=== PATIENT | male | born 1965 | race Caucasian/White ===

== ENCOUNTER → 2018-09-23 | Outpatient (CLI) | payer OTHER ==
[~2018-09-23] MED LIST: ASPI325EC PO; DOCU100 PO; Flexeril 10 mg10 MG PO; Percocet 5-3251 EACH PO
[2018-09-23 12:41] LABS: BASOPHILS ABSOLUTE AUTO 0.04 K/mm3 (0.00-0.23); BASOPHILS PERCENT AUTO 0 % (0-2); EOSINOPHILS ABSOLUTE AUTO 0.02 K/mm3 (0.00-0.68); EOSINOPHILS PERCENT AUTO 0 % (0-6); Hematocrit 44.3 % (37.0-53.0); Hemoglobin 14.5 g/dL (13.5-17.5); IMMATURE GRAN ABSOLUTE AUTO 0.09 K/mm3 (0.00-0.10); IMMATURE GRAN PERCENT AUTO 1 % (0-1); LYMPHOCYTES ABSOLUTE AUTO 1.08 K/mm3 (0.84-5.20); LYMPHOCYTES PERCENT AUTO 8 % (21-46); MONOCYTES ABSOLUTE AUTO 0.92 K/mm3 (0.16-1.47); MONOCYTES PERCENT AUTO 7 % (4-13); Mean Corpuscular HGB 30.3 pg (26.0-34.0); Mean Corpuscular HGB Conc 32.7 g/dL (31.5-36.5); Mean Corpuscular Volume 93 fL (80-100); NEUTROPHILS ABSOLUTE AUTO 11.77 K/mm3 (1.96-9.15); NEUTROPHILS PERCENT AUTO 85 % (41-73); Platelet Count 417 K/mm3 (150-400); RDW Coefficient Variation 13.1 % (11.7-14.2); RDW Standard Deviation 44.7 fL (35.1-46.3); Red Blood Cell Count 4.78 M/mm3 (4.30-5.90); White Blood Cell Count 13.92 K/mm3 (4.00-11.30)
[2018-09-23 12:49] LABS: Alanine Aminotransfer (ALT/SGP 28 U/L (12-78); Albumin, Blood 3.6 g/dL (3.4-5.0); Albumin/Globulin Ratio 0.8 (0.8-1.8); Alk Phos 83 U/L (50-136); Anion Gap 7 mmol/L (6-16); Aspartate Aminotrans (AST/SGOT 25 U/L (12-37); Bilirubin, Total 0.5 mg/dL (0.1-1.0); Blood Urea Nitrogen 18 mg/dL (8-24); Bun/Creatinine Ratio 18.3 (12.0-20.0); CO2, Blood 27 mmol/L (21-32); Calcium, Blood 8.6 mg/dL (8.5-10.1); Chloride, Blood 103 mmol/L (98-108); Creatinine, Blood 0.99 mg/dL (0.60-1.20); Globulin, Blood 4.5 g/dL (2.2-4.0); Glomerular Filtration Rate >60 (60-); Glucose, Blood 92 mg/dL (70-99); Potassium, Blood 3.6 mmol/L (3.5-5.5); Sodium, Blood 137 mmol/L (136-145); Total Protein, Blood 8.1 g/dL (6.4-8.2)
== END | disposition home or self-care (01) ==
LOC: LAB SHORT 11:41 → LAB 11:41
PROVIDERS: Nurse Practitioner
DX: L03.116 Cellulitis of left lower limb (principal)
CPT/HCPCS: 80053; 85025; 87070; 87075; 87077; 87147; 87186; 87205

== ENCOUNTER → 2018-11-28 | Outpatient (CLI) | payer OTHER | END | disposition home or self-care (01) | LOC: LAB SHORT 10:50 → LAB 10:50 | DX: A49.9 Bacterial infection, unspecified (principal); Z87.81 Personal history of (healed) traumatic fracture | CPT/HCPCS: 87070; 87075; 87077; 87147; 87186; 87205 ==

== ENCOUNTER 2018-12-19 00:07 | Day surgery (SDC) | payer OTHER | END 2018-12-19 23:54 | disposition home or self-care (01) | LOC: WOUND 00:07 | DX: L03.116 Cellulitis of left lower limb (principal); I96 Gangrene, not elsewhere classified; L97.821 Non-pressure chronic ulcer of other part of left lower leg limited to breakdown of skin; F17.210 Nicotine dependence, cigarettes, uncomplicated; B19.20 Unspecified viral hepatitis C without hepatic coma; F90.9 Attention-deficit hyperactivity disorder, unspecified type; Z86.14 Personal history of Methicillin resistant Staphylococcus aureus infection; Z91.041 Radiographic dye allergy status; Z79.82 Long term (current) use of aspirin; Z79.899 Other long term (current) drug therapy | CPT/HCPCS: 36415; 73590; 85025; 85651; 86140; 87070; 87075; 87077; 87147; 87186; 87205; G0463 ==

== ENCOUNTER 2018-12-25 09:45 | Day surgery (SDC) | payer OTHER | END 2018-12-25 22:38 | disposition home or self-care (01) | LOC: WOUND 09:45 | DX: L97.922 Non-pressure chronic ulcer of unspecified part of left lower leg with fat layer exposed (principal); F17.210 Nicotine dependence, cigarettes, uncomplicated; Z86.14 Personal history of Methicillin resistant Staphylococcus aureus infection ==

== ENCOUNTER 2019-01-06 08:35 | Day surgery (SDC) | payer OTHER | END 2019-01-06 22:40 | disposition home or self-care (01) | LOC: WOUND 08:35 | DX: L08.9 Local infection of the skin and subcutaneous tissue, unspecified (principal); I96 Gangrene, not elsewhere classified; L97.822 Non-pressure chronic ulcer of other part of left lower leg with fat layer exposed; F17.210 Nicotine dependence, cigarettes, uncomplicated; B15.9 Hepatitis A without hepatic coma; B19.20 Unspecified viral hepatitis C without hepatic coma; Z86.14 Personal history of Methicillin resistant Staphylococcus aureus infection; Z91.041 Radiographic dye allergy status; Z79.82 Long term (current) use of aspirin; Z79.899 Other long term (current) drug therapy | CPT/HCPCS: G0463 ==

== ENCOUNTER 2019-01-13 09:43 | Day surgery (SDC) | payer OTHER | END 2019-01-13 22:52 | disposition home or self-care (01) | LOC: WOUND 09:43 | DX: S81.802D Unspecified open wound, left lower leg, subsequent encounter (principal); Z86.14 Personal history of Methicillin resistant Staphylococcus aureus infection ==

== ENCOUNTER → 2019-04-22 | Outpatient (CLI) | payer OTHER | END | disposition home or self-care (01) | LOC: LAB SHORT 19:31 → LAB 19:31 | DX: A49.9 Bacterial infection, unspecified (principal) | CPT/HCPCS: 87070; 87075; 87077; 87147; 87186; 87205 ==

== ENCOUNTER 2019-06-05 10:47 | Day surgery (SDC) | payer OTHER ==
[~2019-06-05] VITALS: Ht 177.8 cm; Wt 58.0 kg
[2019-06-05] MEDS ORDERED: Doxycycline Mo100 M1 PO (12:02)
[2019-06-05] MEDS ORDERED: [UNRECOGNIZED DRUG - OTHER] (12:02)
== END 2019-06-05 17:20 | disposition home or self-care (01) ==
LOC: ORSCMMR 10:47 → ORD 11:00 → ORSCMMR 12:15 → ORD 12:30 → ORSCMMR 17:20
PROVIDERS: Orthopaedic Surgery
PROC: 0QPH04Z Removal of Internal Fixation Device from Left Tibia, Open Approach (ICD-10-PCS; principal; 2019-06-05 12:30)
DX: S81.802A Unspecified open wound, left lower leg, initial encounter (principal); T84.623A Infection and inflammatory reaction due to internal fixation device of left tibia, initial encounter; A49.02 Methicillin resistant Staphylococcus aureus infection, unspecified site; F17.210 Nicotine dependence, cigarettes, uncomplicated
CPT/HCPCS: 73590; 87071; 87075; 87077; 87147; 87186; 87205; A9270-GY; J0690; J1100; J1885; J2250; J2370; J2405; J2704; J3010; J3370; J7120

== ENCOUNTER 2019-11-17 22:38 | Inpatient (IN) | payer OTHER ==
[~2019-11-17] VITALS: Ht 177.8 cm; Wt 59.5 kg
[~2019-11-17 22:38] MED LIST changes: +Doxycycline Mo100 M1 PO; +[UNRECOGNIZED DRUG - OTHER]
[2019-11-17 23:36] LABS: BASOPHILS ABSOLUTE AUTO 0.08 K/mm3 (0.00-0.23); BASOPHILS PERCENT AUTO 1 % (0-2); EOSINOPHILS ABSOLUTE AUTO 0.11 K/mm3 (0.00-0.68); EOSINOPHILS PERCENT AUTO 1 % (0-6); Hematocrit 43.1 % (37.0-53.0); Hemoglobin 13.8 g/dL (13.5-17.5); IMMATURE GRAN ABSOLUTE AUTO 0.04 K/mm3 (0.00-0.10); IMMATURE GRAN PERCENT AUTO 0 % (0-1); LYMPHOCYTES ABSOLUTE AUTO 1.53 K/mm3 (0.84-5.20); LYMPHOCYTES PERCENT AUTO 14 % (21-46); MONOCYTES ABSOLUTE AUTO 1.02 K/mm3 (0.16-1.47); MONOCYTES PERCENT AUTO 9 % (4-13); Mean Corpuscular HGB 28.6 pg (26.0-34.0); Mean Corpuscular Volume 89 fL (80-100); Mean Platelet Volume 8.8 fL (9.1-12.4); NEUTROPHILS ABSOLUTE AUTO 8.36 K/mm3 (1.96-9.15); NEUTROPHILS PERCENT AUTO 75 % (41-73); Platelet Count 865 K/mm3 (150-400); RDW Coefficient Variation 16.1 % (11.7-14.2); RDW Standard Deviation 53.4 fL (35.1-46.3); Red Blood Cell Count 4.82 M/mm3 (4.30-5.90); White Blood Cell Count 11.14 K/mm3 (4.00-11.30)
[2019-11-17 23:54] LABS: Alanine Aminotransfer (ALT/SGP 10 U/L (12-78); Albumin, Blood 2.3 g/dL (3.4-5.0); Albumin/Globulin Ratio 0.4 (0.8-1.8); Alk Phos 164 U/L (50-136); Anion Gap 5 mmol/L (6-16); Aspartate Aminotrans (AST/SGOT 14 U/L (12-37); Bilirubin, Total 0.3 mg/dL (0.1-1.0); Blood Urea Nitrogen 9 mg/dL (8-24); Bun/Creatinine Ratio 10.7 (12.0-20.0); CO2, Blood 30 mmol/L (21-32); Calcium, Blood 8.7 mg/dL (8.5-10.1); Chloride, Blood 99 mmol/L (98-108); Creatinine, Blood 0.84 mg/dL (0.60-1.20); Globulin, Blood 6.1 g/dL (2.2-4.0); Glomerular Filtration Rate >60 (60-); Glucose, Blood 102 mg/dL (70-99); Potassium, Blood 3.6 mmol/L (3.5-5.5); Sodium, Blood 134 mmol/L (136-145); Total Protein, Blood 8.4 g/dL (6.4-8.2); Troponin I <0.015 ng/mL (0.000-0.040)
--- NOTE | 2019-11-18 02:27 | NUR ---
PATIENT ARRIVED VIA GURNEY TO THE FLOOR. BEING ADMITTED FOR PNEUMONIA, SEPSIS, AND HYPOXIA. AOX3, ABLE TO GET UP AND MOVE AROUND JUST SLOW DUE TO CHEST PAIN AND BACK PAIN. PAIN IS R/T COUGHING AND PNEUMONIA. DENIES PAIN MEDS. STATES HE HAS A HX OF HERION USE AND DOES NOT LIKE TO USE ANY MEDS. HE IS TRYING A HEATING PAD INSTEAD. HAS TO SIT UP IN RECLEINER DUE TO PAIN AND SOB. HAS BEEN UNABLE TO LAY FLAT. LUNG SOUNDS DIMINISHED T/O. RESP EVEN AND UNLABORED. SATS GOOD ON RA. COUGH IS PRODUCTIVE WITH BROWNISH GREEN SPUTUM, SMALL AMOUNTS. CUP GIVEN FOR SPUTUM COLLECTION. IV FLUIDS STARTED, AND AZITHROMYCIN STARTED. BLE EDEMA +2 ELEVATED IN RECLEINER. WILL CONTINUE TO MONITOR, CALL LIGHT IN REACH.
--- NOTE | 2019-11-18 06:10 | NUR ---
SHIFT SUMMARY: AOX3, ADMITTED FOR PNEUMONIA, SEPSIS. LUNG SOUNDS DIMINISHED THROUGHOUT. PRODUCTIVE COUGH WITH BROWNISH GREEN SPUTUM, HAS SPUTUM CUP FOR SAMPLE. REPORTS PLEURAL PAIN IN CHEST WALL. PULLED IV FENTANYL BUT THEN HE DECIDED TO HOLD OFF TILL HE HAD ATE. AFTEWARDS FELL ASLEEP. WASTED MEDICATION. IV FLUIDS INFUSED WITH NO PROBLEMS. HE SLEPT IN RECLEINER DUE TO BACK PAIN. EDEMA IN BLE 1+, ELEVATED IN RECLEINER. NO OTHER CHANGES TO REPORT. CALL LIGHT IN REACH.
[2019-11-18 11:44] LABS: BASOPHILS ABSOLUTE AUTO 0.11 K/mm3 (0.00-0.23); BASOPHILS PERCENT AUTO 1 % (0-2); EOSINOPHILS ABSOLUTE AUTO 0.07 K/mm3 (0.00-0.68); EOSINOPHILS PERCENT AUTO 1 % (0-6); Hematocrit 43.2 % (37.0-53.0); Hemoglobin 13.9 g/dL (13.5-17.5); IMMATURE GRAN ABSOLUTE AUTO 0.02 K/mm3 (0.00-0.10); IMMATURE GRAN PERCENT AUTO 0 % (0-1); LYMPHOCYTES ABSOLUTE AUTO 1.75 K/mm3 (0.84-5.20); LYMPHOCYTES PERCENT AUTO 14 % (21-46); MONOCYTES ABSOLUTE AUTO 1.01 K/mm3 (0.16-1.47); MONOCYTES PERCENT AUTO 8 % (4-13); Mean Corpuscular HGB 29.2 pg (26.0-34.0); Mean Corpuscular HGB Conc 32.2 g/dL (31.5-36.5); Mean Corpuscular Volume 91 fL (80-100); Mean Platelet Volume 8.8 fL (9.1-12.4); NEUTROPHILS ABSOLUTE AUTO 9.16 K/mm3 (1.96-9.15); NEUTROPHILS PERCENT AUTO 76 % (41-73); Platelet Count 765 K/mm3 (150-400); RDW Coefficient Variation 16.1 % (11.7-14.2); RDW Standard Deviation 54.3 fL (35.1-46.3); Red Blood Cell Count 4.76 M/mm3 (4.30-5.90); White Blood Cell Count 12.12 K/mm3 (4.00-11.30)
--- NOTE | 2019-11-18 11:48 | NUR ---
Echocardiogram completed.
[2019-11-18 12:02] LABS: Alanine Aminotransfer (ALT/SGP 9 U/L (12-78); Albumin/Globulin Ratio 0.4 (0.8-1.8); Alk Phos 161 U/L (50-136); Anion Gap 5 mmol/L (6-16); Aspartate Aminotrans (AST/SGOT 13 U/L (12-37); Bilirubin, Total 0.4 mg/dL (0.1-1.0); Blood Urea Nitrogen 10 mg/dL (8-24); Bun/Creatinine Ratio 11.9 (12.0-20.0); CO2, Blood 30 mmol/L (21-32); Calcium, Blood 8.5 mg/dL (8.5-10.1); Chloride, Blood 100 mmol/L (98-108); Creatinine, Blood 0.84 mg/dL (0.60-1.20); Globulin, Blood 5.7 g/dL (2.2-4.0); Glomerular Filtration Rate >60 (60-); Glucose, Blood 79 mg/dL (70-99); Potassium, Blood 3.6 mmol/L (3.5-5.5); Sodium, Blood 135 mmol/L (136-145); Total Protein, Blood 7.7 g/dL (6.4-8.2)
--- NOTE | 2019-11-18 20:45 | NUR ---
PT REQUESTED MED FOR SLEEP AND BREAKTROUGH PAIN IN ADDITION TO TYLENOL. HE DOESN'T LIKE NARCOTICS AND REFUSES FENTANYL. AGATHA (PAVING PLANT OPERATOR) RX'D IBUPROFEN AND MELATONIN PRN. MEDS RECIEVED ALONG W/ROBITUSSIN FOR COUGH/PLEURITIC PAIN, AWAITING EFFECT.
[2019-11-19 05:13] LABS: BASOPHILS ABSOLUTE AUTO 0.14 K/mm3 (0.00-0.23); BASOPHILS PERCENT AUTO 2 % (0-2); EOSINOPHILS ABSOLUTE AUTO 0.16 K/mm3 (0.00-0.68); EOSINOPHILS PERCENT AUTO 2 % (0-6); Hematocrit 40.5 % (37.0-53.0); IMMATURE GRAN ABSOLUTE AUTO 0.03 K/mm3 (0.00-0.10); IMMATURE GRAN PERCENT AUTO 0 % (0-1); LYMPHOCYTES ABSOLUTE AUTO 2.04 K/mm3 (0.84-5.20); LYMPHOCYTES PERCENT AUTO 23 % (21-46); MONOCYTES ABSOLUTE AUTO 0.94 K/mm3 (0.16-1.47); MONOCYTES PERCENT AUTO 11 % (4-13); Mean Corpuscular HGB 28.8 pg (26.0-34.0); Mean Corpuscular HGB Conc 32.1 g/dL (31.5-36.5); Mean Corpuscular Volume 90 fL (80-100); Mean Platelet Volume 8.7 fL (9.1-12.4); NEUTROPHILS ABSOLUTE AUTO 5.46 K/mm3 (1.96-9.15); NEUTROPHILS PERCENT AUTO 62 % (41-73); Platelet Count 723 K/mm3 (150-400); RDW Coefficient Variation 15.8 % (11.7-14.2); Red Blood Cell Count 4.51 M/mm3 (4.30-5.90); White Blood Cell Count 8.77 K/mm3 (4.00-11.30)
[2019-11-19 05:30] LABS: Anion Gap 5 mmol/L (6-16); Blood Urea Nitrogen 11 mg/dL (8-24); Bun/Creatinine Ratio 13.6 (12.0-20.0); CO2, Blood 26 mmol/L (21-32); Calcium, Blood 8.3 mg/dL (8.5-10.1); Chloride, Blood 105 mmol/L (98-108); Creatinine, Blood 0.81 mg/dL (0.60-1.20); Glomerular Filtration Rate >60 (60-); Glucose, Blood 94 mg/dL (70-99); Sodium, Blood 136 mmol/L (136-145)
--- NOTE | 2019-11-19 05:33 | NUR ---
SUMMARY: A/OX4, CALLS APPROPRIATELY AND INDEPENDENT IN ROOM. PT IS AWARE OF LIMITATIONS AND ALERTS STAFF OF NEEDS PRN. LS CLEAR AND DIM W/FINE CRACKLES TO RLL. ROBITUSSIN WAS RECIEVED PRN FOR COUGH AND PLEURITIC PAIN. SPO2 WNL ON RA AND IV ABX PROVIDED FOR PNM. HE HAD UNRELIEVED BACK PAIN FROM TYLENOL ON DAY SHIFT BUT REFUSES FENTANYL/NARCOTICS. IBUPROFEN RX'D PRN AND WAS RECIEVED FOR SLIGHT IMPROVEMENT. HE'S DENIED NEEDING ANY ADDITIONAL PRN PAIN RELIEF SINCE. MELATONIN WAS ALSO RX'D THIS SHIFT FOR REQUEST FOR SLEEP AID. NO ACUTE CHANGES, VSS/AFEBRILE. HE REMAINS ON TELEMETRY IN S.TACH, HR 100'S. WCTM AND REPORT TO DAY RN.
[2019-11-19 09:03] LABS: International Normalized Ratio 1.1; Prothrombin Time Results 11.7 Sec (9.7-11.5)
--- NOTE | 2019-11-19 17:46 | NUR ---
PATIENT IS ALERT AND ORIENTED AND COOPERATIVE WITH CARE. HEPARIN IV IS RUNNING. PATIENT IS INDEPENDENT IN HIS ROOM. THE PATIENT'S DAUGHTER VISITED HIM TODAY. COMPLAINS OF A COUGH, NO SPUTUM PRODUCTION TODAY. PATIENT STATES THE SWELLING IN HIS LEGS HAS GONE DOWN. PATIENT STATES HE IS QUITTING SMOKING, HE IS REFUSING NICOTINE PATCHES. WILL CONTINUE TO MONITOR.
--- NOTE | 2019-11-20 04:44 | NUR ---
PERSONAL BANKING ADVISOR SUMMARY PT WAS PLEASANT AND COOPERATIVE W CARE BUT DID NOT TOLERATE AN IV INSERTION WELL. PT'S HEPERIN WAS INCREASED AND A BLOUS WAS GIVEN FOLLOWING LAB RESULTS FOR HIS APTT.PT AMBULATED TO THE RESTROOM ONCE AND REPORTED INCREASED LEG PAIN SO TYLENOL WAS GIVEN AND HE REPORTED RELIEF OF PAIN. PT'S O2 SAT'S WERE <89 AROUND 0400 SO HE WAS PLACED ON 2L NC AND REMAINED STABLE >92. PT SLEPT FOR MOST OF THE NIGHT AND IS SLEEPING COMFORTABLY WITH CALL LIGHT WITHIN REACH.
[2019-11-20 07:13] LABS: BASOPHILS ABSOLUTE AUTO 0.19 K/mm3 (0.00-0.23); BASOPHILS PERCENT AUTO 2 % (0-2); EOSINOPHILS ABSOLUTE AUTO 0.29 K/mm3 (0.00-0.68); EOSINOPHILS PERCENT AUTO 4 % (0-6); Hematocrit 39.7 % (37.0-53.0); Hemoglobin 12.8 g/dL (13.5-17.5); IMMATURE GRAN ABSOLUTE AUTO 0.02 K/mm3 (0.00-0.10); IMMATURE GRAN PERCENT AUTO 0 % (0-1); LYMPHOCYTES ABSOLUTE AUTO 2.29 K/mm3 (0.84-5.20); LYMPHOCYTES PERCENT AUTO 29 % (21-46); MONOCYTES ABSOLUTE AUTO 0.68 K/mm3 (0.16-1.47); MONOCYTES PERCENT AUTO 9 % (4-13); Mean Corpuscular HGB 28.9 pg (26.0-34.0); Mean Corpuscular HGB Conc 32.2 g/dL (31.5-36.5); Mean Corpuscular Volume 90 fL (80-100); Mean Platelet Volume 8.6 fL (9.1-12.4); NEUTROPHILS ABSOLUTE AUTO 4.31 K/mm3 (1.96-9.15); NEUTROPHILS PERCENT AUTO 56 % (41-73); Platelet Count 783 K/mm3 (150-400); RDW Coefficient Variation 15.9 % (11.7-14.2); RDW Standard Deviation 52.4 fL (35.1-46.3); Red Blood Cell Count 4.43 M/mm3 (4.30-5.90); White Blood Cell Count 7.78 K/mm3 (4.00-11.30)
[2019-11-20 07:31] LABS: Anion Gap 3 mmol/L (6-16); Blood Urea Nitrogen 10 mg/dL (8-24); Bun/Creatinine Ratio 12.4 (12.0-20.0); CO2, Blood 26 mmol/L (21-32); Calcium, Blood 8.1 mg/dL (8.5-10.1); Chloride, Blood 105 mmol/L (98-108); Creatinine, Blood 0.81 mg/dL (0.60-1.20); Glomerular Filtration Rate >60 (60-); Glucose, Blood 88 mg/dL (70-99); Potassium, Blood 4.3 mmol/L (3.5-5.5); Sodium, Blood 134 mmol/L (136-145)
[2019-11-20] MEDS ORDERED: METO25 PO (14:20)
[2019-11-20] MEDS ORDERED: ACET325 PO (14:22)
[2019-11-20] MEDS ORDERED: AZIT500 PO (14:23)
[2019-11-20] MEDS ORDERED: CEFU500T30 PO (14:24)
[2019-11-20] MEDS ORDERED: TUSSIN MUC100 MG/5 M PO (14:26)
[2019-11-20] MEDS ORDERED: XARELTO15 MG PO (14:27)
[2019-11-20] MEDS ORDERED: ALBU90OI INH (14:27)
[2019-11-20] MEDS ORDERED: NICO21TP TOP (14:28)
[2019-11-20] MEDS ORDERED: NITR.4SL SL (14:29)
--- NOTE | 2019-11-20 15:35 | NUR ---
PATIENT DISCHARGED TO HOME WITH A FRIEND. IV SALINE LOCKS D/C'D WITHOUT INCIDENT. DISCUSSED D/C PAPERWORK, NEW MEDICATION, AND UPCOMING APPOINTMENTS; PT VERBALIZED UNDERSTANDING AND WAS ALSO GIVEN PRINTED MATERIALS ON ALL NEW MEDS A REFERENCE. TAKEN DOWNSTAIRS VIA W/C BY HIS FRIEND AT 1530.
== END 2019-11-20 15:31 | disposition home or self-care (01) | DRG 871 ==
LOC: ER 22:38 → MEDS 11-18 00:43 → ENPENDDIS 11-20 14:04 → MEDS 11-20 15:31
PROVIDERS: Emergency Medicine; Internal Medicine; ADMIT Internal Medicine
DX: A41.9 Sepsis, unspecified organism (principal); J18.9 Pneumonia, unspecified organism; J96.01 Acute respiratory failure with hypoxia; J90 Pleural effusion, not elsewhere classified; I42.9 Cardiomyopathy, unspecified; I82.402 Acute embolism and thrombosis of unspecified deep veins of left lower extremity; Z20.828 Contact with and (suspected) exposure to other viral communicable diseases; I08.0 Rheumatic disorders of both mitral and aortic valves; F17.210 Nicotine dependence, cigarettes, uncomplicated
CPT/HCPCS: 36415; 71045; 80048; 80053; 83605; 83880; 84484; 85025; 85610; 85730; 87040; 93005; 93010; 93306; 93971; 94760; 94761; 96361; 96365; 99285-25; A9270; A9270-GY; J0456; J0696; J1644; J1650; J3010; J7030; J7050; J7120; U0002

== ENCOUNTER 2021-04-09 14:41 | Emergency (ER) | payer OTHER ==
[~2021-04-09] VITALS: Ht 177.8 cm; Wt 63.5 kg
[~2021-04-09 14:41] MED LIST changes: +ACET325 PO; +ALBU90OI INH; +AZIT500 PO; +CEFU500T30 PO; +METO25 PO; +NICO21TP TOP; +NITR.4SL SL; +TUSSIN MUC100 MG/5 M PO; +XARELTO15 MG PO
[2021-04-09 15:45] LABS: BASOPHILS ABSOLUTE AUTO 0.06 K/mm3 (0.00-0.23); BASOPHILS PERCENT AUTO 1 % (0-2); EOSINOPHILS ABSOLUTE AUTO 0.13 K/mm3 (0.00-0.68); EOSINOPHILS PERCENT AUTO 2 % (0-6); Hematocrit 47.7 % (37.0-53.0); Hemoglobin 15.6 g/dL (13.5-17.5); IMMATURE GRAN ABSOLUTE AUTO 0.02 K/mm3 (0.00-0.10); IMMATURE GRAN PERCENT AUTO 0 % (0-1); LYMPHOCYTES ABSOLUTE AUTO 2.05 K/mm3 (0.84-5.20); LYMPHOCYTES PERCENT AUTO 26 % (21-46); MONOCYTES ABSOLUTE AUTO 0.63 K/mm3 (0.16-1.47); MONOCYTES PERCENT AUTO 8 % (4-13); Mean Corpuscular HGB 30.4 pg (26.0-34.0); Mean Corpuscular HGB Conc 32.7 g/dL (31.5-36.5); Mean Corpuscular Volume 93 fL (80-100); NEUTROPHILS ABSOLUTE AUTO 4.92 K/mm3 (1.96-9.15); NEUTROPHILS PERCENT AUTO 63 % (41-73); Platelet Count 393 K/mm3 (150-400); RDW Coefficient Variation 13.3 % (11.7-14.2); RDW Standard Deviation 45.3 fL (35.1-46.3); Red Blood Cell Count 5.13 M/mm3 (4.30-5.90); White Blood Cell Count 7.81 K/mm3 (4.00-11.30)
[2021-04-09 15:46] LABS: Influenza A, PCR NEGATIVE (NEGATIVE); Influenza B, PCR NEGATIVE (NEGATIVE); Resp Syncytial Virus, PCR NEGATIVE (NEGATIVE); SARS-Cov-2 (COVID-19) PCR, MMC NEGATIVE (NEGATIVE)
[2021-04-09 16:16] LABS: Alanine Aminotransfer (ALT/SGP 55 U/L (12-78); Albumin, Blood 3.3 g/dL (3.4-5.0); Albumin/Globulin Ratio 0.8 (0.8-1.8); Alk Phos 135 U/L (50-136); Anion Gap 6 mmol/L (6-16); Aspartate Aminotrans (AST/SGOT 53 U/L (12-37); Bilirubin, Total 0.5 mg/dL (0.1-1.0); Blood Urea Nitrogen 29 mg/dL (8-24); Bun/Creatinine Ratio 23.8 (12.0-20.0); CO2, Blood 25 mmol/L (21-32); Calcium, Blood 9.3 mg/dL (8.5-10.1); Chloride, Blood 108 mmol/L (98-108); Creatinine, Blood 1.22 mg/dL (0.60-1.20); Globulin, Blood 4.4 g/dL (2.2-4.0); Glomerular Filtration Rate >60 (60-); Glucose, Blood 101 mg/dL (70-99); Potassium, Blood 4.2 mmol/L (3.5-5.5); Sodium, Blood 139 mmol/L (136-145); Total Protein, Blood 7.7 g/dL (6.4-8.2)
[2021-04-09] MEDS ORDERED: LASIX40 MG PO (17:41)
== END 2021-04-09 17:55 | disposition left against medical advice (07) ==
LOC: ER 14:41
PROVIDERS: Physician Assistant
DX: I50.9 Heart failure, unspecified (principal); R77.8 Other specified abnormalities of plasma proteins; F17.200 Nicotine dependence, unspecified, uncomplicated; Z91.048 Other nonmedicinal substance allergy status; Z20.822 Contact with and (suspected) exposure to COVID-19
CPT/HCPCS: 0241U; 36415; 71046; 80053; 83690; 83880; 84484; 85025; 93005; 93010; 96374; 99284-25; A9270; J1940

== ENCOUNTER 2021-04-19 08:28 | Inpatient (IN) | payer OTHER ==
[~2021-04-19] VITALS: Ht 177.8 cm; Wt 63.5 kg
[~2021-04-19 08:28] MED LIST changes: +LASIX40 MG PO; +Ventolin5 MG/1 ML INH
[2021-04-19 09:34] LABS: PCO2 Arterial 24.1 mmHg (35-45); PO2 Arterial 84.1 mmHg (80-100); pH Blood Arterial 7.42 (7.35-7.45)
[2021-04-19 09:58] LABS: BASOPHILS ABSOLUTE AUTO 0.04 K/mm3 (0.00-0.23); BASOPHILS PERCENT AUTO 0 % (0-2); EOSINOPHILS ABSOLUTE AUTO 0.01 K/mm3 (0.00-0.68); EOSINOPHILS PERCENT AUTO 0 % (0-6); Hematocrit 53.7 % (37.0-53.0); Hemoglobin 17.1 g/dL (13.5-17.5); IMMATURE GRAN ABSOLUTE AUTO 0.11 K/mm3 (0.00-0.10); IMMATURE GRAN PERCENT AUTO 1 % (0-1); LYMPHOCYTES ABSOLUTE AUTO 0.73 K/mm3 (0.84-5.20); LYMPHOCYTES PERCENT AUTO 4 % (21-46); MONOCYTES PERCENT AUTO 7 % (4-13); Mean Corpuscular HGB 29.7 pg (26.0-34.0); Mean Corpuscular HGB Conc 31.8 g/dL (31.5-36.5); Mean Corpuscular Volume 93 fL (80-100); Mean Platelet Volume 9.7 fL (9.1-12.4); NEUTROPHILS ABSOLUTE AUTO 18.58 K/mm3 (1.96-9.15); NEUTROPHILS PERCENT AUTO 89 % (41-73); Platelet Count 427 K/mm3 (150-400); RDW Coefficient Variation 13.9 % (11.7-14.2); RDW Standard Deviation 46.8 fL (35.1-46.3); Red Blood Cell Count 5.75 M/mm3 (4.30-5.90); White Blood Cell Count 20.97 K/mm3 (4.00-11.30)
[2021-04-19 10:34] LABS: Influenza A, PCR NEGATIVE (NEGATIVE); Influenza B, PCR NEGATIVE (NEGATIVE); Resp Syncytial Virus, PCR NEGATIVE (NEGATIVE); SARS-Cov-2 (COVID-19) PCR, MMC NEGATIVE (NEGATIVE)
[2021-04-19 10:41] LABS: Albumin, Blood 3.3 g/dL (3.4-5.0); Albumin/Globulin Ratio 0.8 (0.8-1.8); Bilirubin, Total 3.3 mg/dL (0.1-1.0); Bun/Creatinine Ratio 26.6 (12.0-20.0); Calcium, Blood 9.2 mg/dL (8.5-10.1); Creatinine, Blood 1.54 mg/dL (0.60-1.20); Globulin, Blood 4.2 g/dL (2.2-4.0); Potassium, Blood 5.1 mmol/L (3.5-5.5); Total Protein, Blood 7.5 g/dL (6.4-8.2)
[2021-04-19] MEDS ORDERED: FUROSEMIDE40 MG PO (11:41)
[2021-04-19 12:09] LABS: U Amphetamine Screen DETECTED; U Methamphetamine Screen DETECTED
[2021-04-19 12:10] LABS: U Barbituate Screen Not Detected; U Benzodiazapine Screen Not Detected; U Buprenorphine Screen Not Detected; U Cannabinoids Screen Not Detected; U Cocaine Screen Not Detected; U Methadone Screen Not Detected; U Opiates Screen DETECTED; U Oxycodone Screen Not Detected; U Phencyclidine Screen Not Detected; U Propoxyphene Screen Not Detected
--- NOTE | 2021-04-19 13:30 | NUR ---
PT ARRIVED IN THE UNIT AT 1315 PT IS HERE FOR SEPSIS, TRANSFERRED TO BED VIA SLIDER SHEET, ALERT ABLE TO STATE NAME AND , MOANS IN PAIN ON THE ABD, PT ALSO STATED HE'S FEELING NAUSEOUS. VITALS BEFORE COMING TO THE UNIT WAS AT 70'S SYSTOLIC WENT UP TO 100'S, CANNOT FIND A GOOD READING ON SPO2 PT NOTED TO HAVE PURPLE DISCOLORATION ON FINGERS BLE AND EARLOBES SATS READING 50-70% O2 WAS INCREASED TO 8L SATS CAME UP TO 80-90%, HRR 90-110'S SR. DR MELENDEZ ARRIVED IN THE ROOM ORDERED ANOTHER 1L OF NS FOR SEPSIS, PT HAD A CATHETER IN PLACE NO OUTPUT NOTED. PT STAYED IN PCU FOR [address] MELENDEZ DECIDED TO TRANSFER PT TO ICU. PT ALSO HAS MOTTLING NOTED ON BOTH KNEES. PT STATED HE HAD HIS LAST DRINK TODAY BUT COULDNT REMEMBER WHEN WAS THE LAST TIME HE HAD IV DRUGS USE PT STATED "I DONT KNOW MAYBE COUPLE DAYS AGO.." PT WAS TRANSFERRED TO ICU5, BEDSIDE REPORT GIVEN TO LÁZARO ANGELO. ALL BELONGINGS SENT WITH THE PT
--- NOTE | 2021-04-19 14:00 | NUR ---
Patient arrived from PCU 7, he was on 4 L O2 and sats 70% and increased to 6L without success. Called RT and placed on CPAP and then advanced to BIPAP 14/7 at 100% FiO2. He was able to hold short conversation and now has very little respose, opens eyes to painful stimuli. Dr Gillis has seen patient after talking with Dr Rosa. Dr Gillis ordered PICC line. Patient has 16Fr Fabian draing to gravity and flushed several times as patient says hurts. ECHO being done and will bladder scan. Patient has 18ga IV in RAC flushed and SL. and 20ga IV in LW and is currently infusing NS bolus X1. Medicated 2 mg Ativan for agitation.
--- NOTE | 2021-04-19 16:56 | NUR ---
YORDY PICC line in place with Dobutamine infusing.
--- NOTE | 2021-04-19 17:25 | NUR ---
Referred by ICU nurse. Pt. mostly unresponsive. Prayed with Pt. Pts. daughter arrived. Daughter unsettled by the visceral pain of Pt. and diagnosis. Established a theraputic alliance with the daughter. Pastoral corrections counselor given. PtsTyron FATIMA communicated with daughter and nursing staff by text and phone, and is relunctant to choose comfort care at this time. Daughter verbalized gratitude for spiritual care and pastoral corrections counselor.
--- NOTE | 2021-04-19 17:50 | NUR ---
Patient continues to rest on BIPAP with settings of 10/8 60% FiO2 and sats 80-95%. Fabian draining to gravity light adrián colored urine. He has PICC Line infusing Dobutamine at 10 mcg/kg/min and systolic 70-100's. CN spoke with and wants to keep DNR and no Comfort Care for now. He remaisn unresponsive and withdrawls from Nocious stimuli. See VS.
--- NOTE | 2021-04-19 19:15 | NUR ---
ASSUMPTION OF CARE PT IS ON BIPAP AT THIS TIME WITH SETTINGS 10/8 WITH FIO2 60%. HE IS RECEIVING DOBUTAMINE 10MCG/KG/MIN. MEZA PATENT WITH SCANT AMOUNT OF URINE IN TUBING. PT OPENS EYES TO TOUCH, ANSWERS A FEW QUESTIONS BY NODDING/SHAKING HEAD BUT QUICKLY CLOSES EYES AND RETURNS TO SLEEP. EVEN THOUGH HE IS SOMNOLENT, HE WILL ANSWER QUESTIONS AND FOLLOW COMMANDS. HE WAS ABLE TO STRONGLY SQUEEZE WITH BOTH HANDS AND WIGGLES TOES. HE DENIES PAIN OR DISCOMFORT AT THIS TIME. FAMILY WILL BE IN LATER TONIGHT TO VISIT AND DISCUSS PLAN OF CARE. SEE SHIFT ASSESSMENT.
--- NOTE | 2021-04-19 20:46 | NUR ---
UPDATE DAUGHTER DYLON AT BEDSIDE FOR UPDATE AND VISITATION. PT WAKENS TO LIGHT SHOULDER SHAKE AND VERBAL STIMULI BUT WILL ONLY ANSWER 1-2 QUESTIONS AND RETURN TO SLEEP. HE REMAINS VERY SOMNOLENT AND EVEN THOUGH HE ANSWERS QUESTIONS IT IS DIFFICULT TO VERIFY FULL UNDERSTANDING OF SITUATION. MEDICATED PER EMAR DUE TO RESTLESSNESS AND AGITATION. DYLON WILL DISCUSS INFORMATION WITH SCOTTIE AND RETURN LATER.
--- NOTE | 2021-04-19 21:35 | NUR ---
TRANSITION TO COMFORT CARE TELEPHONE CALL RECEIVED FROM DAUGHTER DYLON AND SPOUSE SCOTTIE. A FAMILY, THEY HAVE DECIDED TO TRANSITION PT TO COMFORT CARE. THIS VERBAL CONSENT WAS VERIFED WITH ASIF ANGELO. PLAN FOR DYLON TO COME IN AND BIPAP AND DOBUTAMINE WILL BE DISCONTINUED AT THAT TIME. TELEPHONE CALLS PLACED TO DR GERARD AND DR OLIVEROS TO UPDATE ON PLAN OF CARE. ORDERS RECEIVED FOR COMFORT PACK.
--- NOTE | 2021-04-19 23:30 | NUR ---
FAMILY AT BEDSIDE MULTIPLE FAMILY MEMBERS AT BEDSIDE. UPDATED ON PT'S CONDITION, VISITING WITH EACH OTHER. FAMILY GIVEN PRIVATE TIME WITH PT AND WILL COMMUNICATE WHEN READY TO DISCONTINUE DOBUTAMINE AND BIPAP.
--- NOTE | 2021-04-20 01:40 | NUR ---
UPDATE BIPAP MASK TAKEN OFF AND DOBUTAMINE OFF AT 0025. PT IS TOLERATING WELL. MEDICATED PER EMAR FOR COMFORT. DAUGHTER DYLON REMAINS AT BEDSIDE.
--- NOTE | 2021-04-20 03:30 | NUR ---
PT RESTING. REPOSITIONS SELF INDEPENDENTLY WITH HARD TURNS ON EITHER SIDE. HE OCCASIONALLY BECOMES RESTLESS, AGITATED AND HAS AIR HUNGER. PT MEDICATED PER EMAR. DAUGHTER REMAINS AT BEDSIDE.
--- NOTE | 2021-04-20 06:18 | NUR ---
SHIFT SUMMARY PT REMAINS COMFORT CARE STATUS AND PLAN TO MOVE TO MEDICAL FLOOR WHEN BED AVAILABLE. HE HAS BEEN DISCONNECTED FROM BIPAP AND SALINE LOCKED SINCE APPROX MIDNIGHT. PT HAS MOMENTS OF DISTRESS, RESTLESSNESS, AND AIR HUNGER. HE HAS BEEN MEDICATED PER EMAR FOR COMFORT. DR SETH AT BEDSIDE FOR UPDATE. AT THIS TIME SHE IS SIGNING OFF CARE TO THE HOSPITALIST. SHE ANSWERED DAUGHTER DYLON'S QUESTIONS AND UPDATED HER ON YESTERDAY'S EVENTS. DYLON REMAINS AT BEDSIDE. PT APPEARS TO BE RESTING COMFORTABLY, NO SIGNS OF DISTRESS AT THIS TIME. WILL REPORT TO ONCOMING RN.
--- NOTE | 2021-04-20 07:33 | NUR ---
Received report from Mirta ANGELO. Patient daughter at bedside. Patient was made comfort care. Medicaded for pain to make comfortable. Patient not arouseable and breathing 8-15 BPM. Sats 70's and HR 120's. Will continue to monitor for distress.
[2021-04-20 08:12] LABS: HBSAG SCREEN Negative (Negative); HEP A AB, IGM Negative (Negative); HEP B CORE AB, IGM Negative (Negative); HEP C VIRUS AB >11.0 (0.0-0.9)
--- NOTE | 2021-04-20 10:04 | NUR ---
Spiritual Care Visit. Pt. is unresponsive and breathing heavily on his own. Pts. daughter is present, plans to stay with pt. for the time being. Daughter is showing distress over choosing a home based on expense. Listen empathetically. Provide daughter with end of life decision making support. Provide pastoral job counselor. Daughter displays evidence of understanding. Updated the nurse of the situation.
--- NOTE | 2021-04-20 10:40 | NUR ---
Daughter remained at beside and making calls for final care. Palliative care at bedside with daughter to assist with calls. Patient agonal breathingand looks to be very comfortable and no distress. Daughter left to go home and called her back as his HR was decreasing to 20-30 and he passed as she arrived at 1025. CN made final discharge calls.
--- NOTE | 2021-04-20 10:45 | NUR ---
Comfort care visit made to pt and becka from 10 am until after his passing. Another RN and I repositioned pt during which no nonverbal indicators of pain, discomfort, anxiety or distress were noted. Pt was breathing/snoring loudly with even regular breaths initially. Within moments of becka leaving to work on arrangements, pt's breathing became agonal with long apnic episodes and heart rate declined until there were no beats over a few minutes. Becka was called and she quickly returned just after sales performance analyst confirmed no HR. Pt appeared very comfortable and peaceful t/o my entire visit. Becka was initially very distressed in worry about no funds for expenses. Information provided, community contacts and explanation of what happens in these situations. Becka expressed some relief. Support offered after pt's . She will check to see if his wants to come in prior to [facility] being called. Ph numbers given to her to let us know how and when to proceed.
== END 2021-04-20 10:25 | DRG 871 ==
LOC: ER 08:28 → PCU 11:44 → ICUE 11:44 → PCU 13:00 → ICUE 13:29
PROVIDERS: Physician Assistant; ADMIT Internal Medicine
PROC: 3E03329 Introduction of Other Anti-infective into Peripheral Vein, Percutaneous Approach (ICD-10-PCS; principal; 2021-04-19)
PROC: 05HY33Z Insertion of Infusion Device into Upper Vein, Percutaneous Approach (ICD-10-PCS; 2021-04-19)
PROC: 5A09357 Assistance with Respiratory Ventilation, Less than 24 Consecutive Hours, Continuous Positive Airway Pressure (ICD-10-PCS; 2021-04-19)
DX: A41.9 Sepsis, unspecified organism (principal); K72.00 Acute and subacute hepatic failure without coma; J18.9 Pneumonia, unspecified organism; J96.01 Acute respiratory failure with hypoxia; I50.23 Acute on chronic systolic (congestive) heart failure; N17.9 Acute kidney failure, unspecified; E87.2 Acidosis; I42.7 Cardiomyopathy due to drug and external agent; Z66 Do not resuscitate; Z51.5 Encounter for palliative care; Z20.822 Contact with and (suspected) exposure to COVID-19; B19.20 Unspecified viral hepatitis C without hepatic coma; R65.20 Severe sepsis without septic shock; R57.0 Cardiogenic shock; F10.10 Alcohol abuse, uncomplicated; J43.9 Emphysema, unspecified; R91.1 Solitary pulmonary nodule; R94.5 Abnormal results of liver function studies; F15.10 Other stimulant abuse, uncomplicated; F41.9 Anxiety disorder, unspecified; D75.839 Thrombocytosis, unspecified; Z86.718 Personal history of other venous thrombosis and embolism; Z91.041 Radiographic dye allergy status; Z78.1 Physical restraint status
CPT/HCPCS: 0241U; 36415; 36569; 36600; 51702; 71045; 76705; 80053; 80074; 82803; 82947; 83605; 83690; 83880; 84145; 84439; 84443; 84484; 85025; 87040; 93005; 93010; 93306; 94660; 96365; 96375; 99285-25; A9270; C1751; C1769; J0456; J0696; J1250; J2060; J2270; J2405; J7030; J7050